=== PATIENT | female | born 2000 | race Two or more races ===

== ENCOUNTER 2020-08-22 09:24 | Emergency (ER) | payer SELFPAY ==
[2020-08-22] MEDS ORDERED: Terbutaline 1 MG/ML SDV IV ONE (09:48)
[2020-08-22] MEDS ORDERED: Terbutaline 1 MG/ML SDV SUBCUT ONE (09:51)
--- NOTE | 2020-08-22 09:55 | EDM.PDOC ---
ED HPI GENERAL MEDICAL PROBLEM - General Chief Complaint: [employer] Problem Stated Complaint: CONTRACTIONS Time Seen by Provider: 08/22/20 09:25 Source of Information: Reports: Patient History Limitations: Reports: No Limitations - History of Present Illness INITIAL COMMENTS - FREE TEXT/NARRATIVE: c/o active labor with onset ctxs at 9p last night, inc'd intensity at 12p, not slept comes to ED here, did not know that deliveries are not done here 39 5/7 wk gestation, scheduled for a repeat c/s in 4d in [facility], however she unexpectedly come to the local area yesterday 1st delivery in [place], 1y ago, term, dilated to 7 cm, then c/s done no other preg denies medical problems except low hgb no loss of fluid, fetus active d/w Dr Gomez on [place] [facility] at 9:40a, he requested terbutaline 0.25 mg SQ ctxs time out at q3min here in ED toco is no longer available in hosp - Related Data Allergies Allergy/AdvReac Type Severity Reaction Status Date / Time No Known Allergies Allergy Verified 08/22/20 09:43 Home Meds: Home Meds Ferrous Sulfate [Iron] 325 mg PO BID 08/22/20 [History] ED ROS GENERAL - Review of Systems Review Of Systems: See Below Constitutional: Reports: No Symptoms HEENT: Reports: No Symptoms Respiratory: Reports: No Symptoms Cardiovascular: Reports: No Symptoms Endocrine: Reports: No Symptoms GI/Abdominal: Reports: Abdominal Pain, Other (ctxs) : Reports: No Symptoms Musculoskeletal: Reports: No Symptoms Skin: Reports: No Symptoms Neurological: Reports: No Symptoms Psychiatric: Reports: No Symptoms Hematologic/Lymphatic: Reports: No Symptoms Immunologic: Reports: No Symptoms ED EXAM - Physical Exam Exam: See Below Exam Limited By: No Limitations General Appearance: Alert, WD/WN, Mild Distress Head: Atraumatic, Normocephalic Neck: Normal Inspection, Supple, Non-Tender, Full Range of Motion. No: Lymphadenopathy (R), Lymphadenopathy (L) Respiratory/Chest: No Respiratory Distress, Lungs Clear, Normal Breath Sounds, No Accessory Muscle Use, Chest Non-Tender Cardiovascular: Regular Rate, Rhythm GI/Abdominal Exam: Other (gravid, 2+ ctxs by palpation) (Female) Exam: Other (vtx/1+ station/90% effaced/bulging bag, 2 cm, cx is posterior, unable to assess fontanelles for position d/t bulging bag) Back Exam: Normal Inspection Extremities: Normal Inspection, Normal Range of Motion, Non-Tender, No Pedal Edema Neurological: Alert, Oriented, CN II-XII Intact, Normal Cognition, Normal Gait, No Motor/Sensory Deficits Psychiatric: Normal Affect, Normal Mood Skin Exam: Warm, Dry, Intact, Normal Color, No Rash Lymphatic: No Adenopathy Course - Vital Signs Last Recorded V/S: Last Vital Signs Temp 36.6 C 08/22/20 09:24 Pulse 75 08/22/20 09:24 Resp 20 08/22/20 09:24 BP 121/70 08/22/20 09:24 Pulse Ox 100 08/22/20 09:24 - Orders/Labs/Meds Orders: Active Orders 24 hr Category Date Time Status Sodium Chloride 0.9% [Normal Saline] 1,000 ml Med 08/22/20 10:00 Ordered IV ASDIRECTED Medication Orders Sodium Chloride (Normal Saline) 1,000 mls @ 999 mls/hr IV ASDIRECTED SAÚL Labs: Laboratory Tests 08/22/20 Range/Units 09:50 WBC 9.6 (3.0-10.3) x10-3/uL RBC 3.92 (3.60-5.20) x10(6)uL Hgb 10.0 L (11.4-15.5) g/dL Hct 30.9 L (34.2-48.2) % MCV 78.9 (76.7-100.5) fL MCH 25.4 (23.9-33.9) pg MCHC 32.3 (31.9-34.8) g/dL RDW 18.5 H (12.3-16.5) % Plt Count 187 (151-488) x10(3)uL MPV 9.0 (7.1-12.4) fL Neut % (Auto) 77.0 H (30.8-76.2) % Lymph % (Auto) 17.7 L (18.4-52.1) % [place] % (Auto) 4.5 (4.4-15.7) % Eos % (Auto) 0.4 L (0.6-8.1) % Baso % (Auto) 0.4 (0.2-1.5) % Neut # (Auto) 7.4 H (1.5-6.3) x10-3/uL Lymph # (Auto) 1.7 (1.0-4.4) x10-3/uL [place] # (Auto) 0.4 (0.3-1.0) x10-3/uL Eos # (Auto) 0.0 (0.0-0.8) x10-3/uL Baso # (Auto) 0.0 (0.0-0.1) x10-3/uL Meds: Medications Generic Name Dose Route Start Last Admin Trade Name Freq PRN Reason Stop Dose Admin Sodium Chloride 1,000 mls @ 999 mls/hr 08/22/20 10:00 Normal Saline IV ASDIRECTED SAÚL Discontinued Medications Generic Name Dose Route Start Last Admin Trade Name Freq PRN Reason Stop Dose Admin Terbutaline Sulfate 0.25 mg 08/22/20 09:48 Brethine IV 08/22/20 09:49 ONETIME ONE Terbutaline Sulfate 0.25 mg 08/22/20 09:51 08/22/20 09:55 Brethine SUBCUT 08/22/20 09:52 0.25 mg ONETIME ONE Administration - Re-Assessments/Exams Free Text/Narrative Re-Assessment/Exam: 08/22/20 10:05 EMS here, pt feeling a little better after terbutaline, fetus continues to be very active Departure - Departure Time of Disposition: 09:49 Disposition: DC/Tfer to Other 70 Condition: Good Clinical Impression: Active labor at term - Discharge Information *PRESCRIPTION DRUG MONITORING PROGRAM REVIEWED*: Not Applicable *COPY OF PRESCRIPTION DRUG MONITORING REPORT IN PATIENT JUANA: Not Applicable Forms: ED Department Discharge Sepsis Event Note (ED) - Focused Exam Vital Signs: Vital Signs Temp Pulse Resp BP Pulse Ox 08/22/20 09:24 36.6 C 75 20 121/70 100 - My Orders Last 24 Hours: My Active Orders 08/22/20 10:00 Sodium Chloride 0.9% [Normal Saline] 1,000 ml IV ASDIRECTED - Assessment/Plan Last 24 Hours: My Active Orders 08/22/20 10:00 Sodium Chloride 0.9% [Normal Saline] 1,000 ml IV ASDIRECTED
[2020-08-22] MEDS ORDERED: Sodium Chloride 0.9% 1,000 ML IV SCH (10:00)
== END 2020-08-22 10:15 | disposition other institution (70) ==
LOC: FB.ED 09:24
DX: O47.1 False labor at or after 37 completed weeks of gestation (principal); Z3A.39 39 weeks gestation of pregnancy
CPT/HCPCS: 85025; 99285; J3105; J7030; 96372